=== PATIENT | female | born 1955 | race Caucasian/White ===

== ENCOUNTER 2022-10-07 10:23 | Emergency (ER) | payer MEDICARE, OTHER ==
--- NOTE | 2022-10-07 10:48 | ED Physician Documentation ---
PD HPI UPPER EXT INJURY - Stated complaint Stated Complaint: RT WRIST INJ - Chief complaint Chief Complaint: Trauma Ext - History obtained from History obtained from: Patient - Additonal information Additional information: Patient is a 67-year-old female presenting for evaluation of right forearm and wrist pain after falling today. 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 She denies hitting her head or having LOC. She caught herself with her right arm. She does not take a blood thinner. This occurred around 730. She denies pain or injury elsewhere. Review of Systems Constitutional: denies: Fever Cardiac: denies: Chest pain / pressure Respiratory: denies: Cough GI: denies: Abdominal Pain Musculoskeletal: reports: Extremity pain Neurologic: denies: Head injury PD PAST MEDICAL HISTORY - Present Medications Home Medications: Ambulatory Orders Medication Instructions Recorded Confirmed HYDROcod/ACETAM 5/325 [[place] 5/325] 1 tablet PO Q6H PRN #14 tablet 10/07/22 - Allergies Allergies/Adverse Reactions: Allergies Allergy/AdvReac Type Severity Reaction Status Date / Time nickel Allergy Rash Verified 10/07/22 10:34 PD ED PE NORMAL - General General: Alert and oriented X 3, No acute distress, Well developed/nourished - HEENT HEENT: Atraumatic, Moist mucous membranes, Pharynx benign - Neck Neck: Supple, no meningeal sign, No bony TTP, C-Spine cleared by NEXUS criteria - Cardiac Cardiac: RRR, Strong equal pulses - Respiratory Respiratory: No respiratory distress - Extremities Extremities: Other (Normal range of motion at right elbow, bruising to distal right forearm, mild pain on range of motion of right wrist but no tenderness specifically over the wrist) - Neuro Neuro: Alert and oriented X 3, No motor deficit, No sensory deficit, Normal speech Eye Opening: Spontaneous Motor: Obeys Commands Verbal: Oriented GCS Score: 15 Results - Vitals Vitals: Vital Signs - 24 hr 10/07/22 10/07/22 10:28 11:58 Temperature 36.7 C Heart Rate 70 60 Respiratory 20 16 Rate Blood Pressure 134/67 H 114/64 O2 Saturation 98 100 Oxygen O2 Source Room air PD Medical Decision Making - ED course Complexity details: reviewed results, re-evaluated patient, d/w patient ED course: Patient is a 67-year-old female presenting for evaluation of right forearm pain after falling this morning. X-rays were obtained of the forearm and wrist which demonstrates a distal radius fracture which is nondisplaced. Patient is neurovascularly intact. She has no tenderness at the elbow with good range of motion. No head injury. Patient was placed into a splint and given a sling. She was instructed on need for follow-up with orthopedic surgery. She is advised on concerning symptoms to return for. Departure - Departure Disposition: 01 Home, Self Care Clinical Impression: Distal radius fracture Qualifiers: Encounter type: initial encounter Fracture type: closed Fracture morphology: unspecified fracture morphology Laterality: right Qualified Code(s): S52.501A - Unspecified fracture of the lower end of right radius, initial encounter for closed fracture Condition: Stable Instructions: ED Fx Wrist General Follow-Up: Artemio Quevedo MD [Provider Admit Priv/Credential] - Prescriptions: HYDROcod/ACETAM 5/325 [[place] 5/325] 1 tablet PO Q6H PRN #14 tablet PRN Reason: Pain Comments: You have a fracture in your right wrist. We have applied a splint and given you a sling. You will need follow-up with an orthopedic surgeon. [place] or reach out to your own for close follow-up. I have also sent a prescription for narcotic pain medication to [facility] in [place]. You were also given a copy of your x-rays. Please take this with you to your orthopedic appointment. I am prescribing a short course of narcotic pain medication for you. These are potentially dangerous and addictive medications that should be used carefully. These medications may constipate you. Take an pyic-mce-jrshgvc stool softener (docusate) twice daily with plenty of water while taking these medications. If you go 24 hours without a bowel movement, take peck-kxp-ugfwozz miralax, per package instructions. Do not drink or drive while taking these medications. If you received narcotic or sedating medications while in the emergency department, do not drive for 24 hours. Store this medication in a safe, secure place and out of reach of children. It is a violation of federal law to give or sell this medication to another person or to use in a manner other than prescribed. The ED will not refill narcotic prescriptions, including prescriptions lost or stolen. To dispose of unwanted medications: 1. [facility] at [address] in [facility] has a medication drop box. They accept prescription medications (in pill form) Sunday through Sunday 9:00 a.m. to 5:00 p.m. 2. The [facility] accepts prescription medications (in pill form only) for disposal year round. Call for more information. 3. Contact the [facility] for the next [facility] sponsored prescription drug collection event. , [phone], or [phone]; Note that many narcotic pain relievers also contain Tylenol/acetaminophen. Please ensure that your total dose of acetaminophen from all sources does not exceed 3 g (3000 mg) per day. Forms: PCP List Discharge Date/Time: 10/07/22 11:59
--- NOTE | 2022-10-07 11:15 | XRAY Report ---
PROCEDURE: Wrist 3 View RT INDICATIONS: fall TECHNIQUE: 3 views of the wrist were acquired. COMPARISON: Forearm series from same day. FINDINGS: Bones: Nondisplaced distal right radial fracture best seen on the lateral view. Cortical disruption noted over the volar aspect of the distal radius. No suspicious bony lesions. Soft tissues: No suspicious soft tissue calcifications or masses. IMPRESSION: Nondisplaced distal right radial fracture. Reviewed by: Asher Redman MD on 10/07/2022 10:14 AM JERMAIN Approved by: Asher Redman MD on 10/07/2022 10:14 AM JERMAIN Station ID: [id number]
--- NOTE | 2022-10-07 11:16 | XRAY Report ---
PROCEDURE: Forearm RT INDICATIONS: fall TECHNIQUE: 2 views of the forearm were acquired. COMPARISON: Right wrist series from same day FINDINGS: Bones: Nondisplaced distal right radial fracture involving the volar aspect. No suspicious bony lesi ons. Soft tissues: No suspicious soft tissue calcifications or masses. IMPRESSION: Nondisplaced distal radial fracture. Reviewed by: Asher Redman MD on 10/07/2022 10:15 AM JERMAIN Approved by: Asher Redman MD on 10/07/2022 10:15 AM [place] A Station ID: [id number]
[2022-10-07 11:59] VITALS: BP 114/64
== END 2022-10-07 11:59 | disposition home or self-care (01) ==
LOC: ED 10:23
DX: S52.501A Unspecified fracture of the lower end of right radius, initial encounter for closed fracture (principal); W18.30XA Fall on same level, unspecified, initial encounter; Y93.K9 Activity, other involving animal care; Y92.832 Beach as the place of occurrence of the external cause
CPT/HCPCS: 99283

== ENCOUNTER 2022-10-12 10:20 | Outpatient (CLI) | payer MEDICARE ==
--- NOTE | 2022-10-13 00:12 | XRAY Report ---
PROCEDURE: Shoulder 3 View RT INDICATIONS: RIGHT SHOULDER PAIN TECHNIQUE: 4 views of the shoulder were acquired. COMPARISON: None. FINDINGS: Bones: No fractures or dislocations. No suspicious bony lesions. Moderate acromioclavicular and gl enohumeral joint degeneration. Chondrocalcinosis. Visualized ribs appear intact. Soft tissues: Calcific densities over the humeral head consistent with calcific tendinitis. IMPRESSION: 1. Moderate osteoarthritic changes. 2. Rotator cuff calcific tendinitis. 3. Chondrocalcinosis. Differential diagnoses include parasellar descending and CPPD. Reviewed by: Greg Bauman MD on 10/13/2022 12:11 AM PDT Approved by: Greg Bauman MD on 10/13/2022 12:11 AM PDT Station ID: [id number]
--- NOTE | 2022-10-13 00:24 | XRAY Report ---
PROCEDURE: Elbow 3 View RT INDICATIONS: RIGHT ELBOW PAIN TECHNIQUE: 3 views of the elbow were acquired. COMPARISON: X-ray right forearm, 10/07/2022. FINDINGS: Bones: Possible small avulsion fracture at the lateral humeral epicondyles. No dislocations. No fany picious bony lesions. Soft tissues: Small elbow effusion. No suspicious soft tissue calcifications or masses. Soft tissu e swelling posterior to elbow. IMPRESSION: 1. Possible small avulsion fracture fragment at the lateral humeral epicondyles. 2. Small elbow effusion. Reviewed by: Greg Bauman MD on 10/13/2022 12:22 AM PDT Approved by: Greg Bauman MD on 10/13/2022 12:22 AM PDT Station ID: [id number]
== END 2022-10-12 23:59 | disposition home or self-care (01) ==
LOC: DI.WOS 10:20
PROVIDERS: ATTEND Orthopaedic Surgery
DX: S52.531A Colles' fracture of right radius, initial encounter for closed fracture (principal); M25.421 Effusion, right elbow; M19.011 Primary osteoarthritis, right shoulder; M75.91 Shoulder lesion, unspecified, right shoulder; M11.211 Other chondrocalcinosis, right shoulder

== ENCOUNTER 2022-11-14 08:00 | Outpatient (CLI) | payer MEDICARE ==
--- NOTE | 2022-11-15 22:11 | XRAY Report ---
PROCEDURE: Wrist 3 View RT INDICATIONS: RIGHT WRIST FX TECHNIQUE: 3 views of the wrist were acquired. COMPARISON: X-ray right wrist, 10/07/2022. FINDINGS: Bones: There is a nondisplaced healing fracture in the distal radial metaphysis. Increased sclerosis along the fracture is consistent with healing. No suspicious bony lesions. Soft tissues: No suspicious soft tissue calcifications or masses. IMPRESSION: Healing nondisplaced distal radial metaphyseal fracture. Reviewed by: Greg Bauman MD on 11/15/2022 10:10 PM PDT Approved by: Greg Bauman MD on 11/15/2022 10:10 PM PDT Station ID: [id number]
== END 2022-11-14 23:59 | disposition home or self-care (01) ==
LOC: DI.WOS 08:00
PROVIDERS: ATTEND Physician Assistant Surgical
DX: S52.531D Colles' fracture of right radius, subsequent encounter for closed fracture with routine healing (principal)